=== PATIENT | female | born 1965 | race Caucasian/White ===

== ENCOUNTER 2021-08-14 08:55 | Outpatient (CLI) | payer OTHER, SELFPAY ==
--- NOTE | 2021-08-14 09:40 | MM_ITS ---
WS: [id number] VIEWS: MLO and CC views both breasts. 3D digital tomosynthesis is also included in this exam. Comparison made with prior exam of 09/23/2007, 10/10/2008, 02/17/2017,. Findings: There was no sign of mass, architectural distortion or suspicious calcification in either breast. Sc attered fibroglandular densities MM/[place] [id number] Impression: BI-RADS: 2-Benign FOLLOW-UP: 1 Year Follow-up This mammogram was also analyzed by the Computer Aided Detection System [employer].
== END 2021-08-14 08:56 | disposition home or self-care (01) ==
LOC: RAD 09:15
PROVIDERS: Visit Provider Dermatology
DX: Z12.31 Encounter for screening mammogram for malignant neoplasm of breast (principal)
CPT/HCPCS: 77063; 77067